=== PATIENT | female | born 2005 | race Caucasian/White ===

== ENCOUNTER 2024-09-20 15:54 | Outpatient (CLI) | payer BC, SELFPAY | END 2024-09-20 15:55 | disposition home or self-care (01) | LOC: NFLDREF 15:55 | PROVIDERS: PCP Registered Nurse; Visit Provider Registered Nurse | DX: L70.0 Acne vulgaris (principal) | CPT/HCPCS: 80048 ==

== ENCOUNTER 2025-03-23 14:55 | Outpatient (CLI) | payer BC, SELFPAY ==
[2025-03-24 00:35] LABS: Chlamydia DNA Amplified* NOT DETECTED (No Detected); GC DNA Amplified* NOT DETECTED (No Detected)
[2025-03-28 11:59] LABS: Pap Test Digital Imaging Done
== END 2025-03-23 14:56 | disposition home or self-care (01) ==
PROVIDERS: PCP Registered Nurse; Visit Provider Physician Assistant Medical
DX: Z00.00 Encounter for general adult medical examination without abnormal findings (principal)
CPT/HCPCS: 87491; 87591; 87624; 87625; 88141; 88142; 88175